=== PATIENT | male | born 1955 | race Caucasian/White ===

== ENCOUNTER → 2021-03-31 | Outpatient (CLI) | payer MEDICARE ==
[~2021-03-31] MED LIST: CLONAZEPAM0.5 MG PO; IOPAMIDOL 370 MG/ML 200 ML INFUS..BTL INJ ONE; LACTULOSE20 GM/30 M PO; NORCO 7.5-3251 EACH PO; SODIUM CHLORIDE 0.9% 100 ML ONE; Z.0.AMBIEN10 MG PO; Z.0.OMEPRAZOLE20 MG PO; Z.0.XANAX0.25 MG PO
== END ==
LOC: CT 09:23
PROVIDERS: ATTEND Internal Medicine Interventional Cardiology
DX: I71.4 Abdominal aortic aneurysm, without rupture (principal)
CPT/HCPCS: 71275; 74174; J7050; Q9967

== ENCOUNTER → 2024-09-11 | Outpatient (REF) | payer MEDICARE ==
[~2024-09-11] MED LIST changes: -IOPAMIDOL 370 MG/ML 200 ML INFUS..BTL INJ ONE; -SODIUM CHLORIDE 0.9% 100 ML ONE
== END ==
LOC: US 10:38
PROVIDERS: ATTEND Internal Medicine Gastroenterology
DX: K74.60 Unspecified cirrhosis of liver (principal)
CPT/HCPCS: 76700

== ENCOUNTER → 2024-10-17 | Outpatient (REF) | payer MEDICARE ==
[2024-10-17 14:33] LABS: BASOPHILS # (AUTO) 0.1 (0.0-0.1); BASOPHILS % 0.7 % (0.0-1.0); EOSINOPHILS # (AUTO) 0.4 (0.0-0.4); EOSINOPHILS % 4.6 % (0.0-6.0); HEMOGLOBIN 15.4 g/dL (14.0-18.0); LYMPHOCYTES # (AUTO) 2.7 (1.0-3.2); MEAN CORPUSCULAR HGB CONC 32.8 g/dL (31-35); MEAN CORPUSCULAR VOLUME 94.8 fL (81-99); MONOCYTES # (AUTO) 0.8 (0.2-0.8); MONOCYTES % 9.5 % (4.4-11.3); NEUTROPHILS % 50.1 % (38.7-80.0); PLATELET COUNT 170 x10e3/uL (140-360); RED BLOOD COUNT 4.96 x10e6/uL (4.3-5.7); RED CELL DISTRIBUTION WIDTH 12.7 % (11.7-14.4); WHITE BLOOD COUNT 8.02 x10e3/uL (4.8-10.8)
[2024-10-17 14:46] LABS: INR 1.04; PROTHROMBIN TIME 14.2 seconds (11.9-14.5)
[2024-10-17 14:53] LABS: ANION GAP 15.2 mmol/L (8-16); BILIRUBIN,DIRECT 0.4 mg/dL (0.0-0.5); BILIRUBIN,TOTAL 1.1 mg/dL (0.2-1.2); CALCIUM 9.5 mg/dL (8.4-10.2); CREATININE, SERUM 0.9 mg/dL (0.72-1.25); POTASSIUM 4.2 mmol/L (3.5-5.1); TOTAL PROTEIN 6.9 g/dL (6.5-8.1)
== END ==
LOC: LAB 14:06
PROVIDERS: ATTEND Internal Medicine Gastroenterology
DX: K74.60 Unspecified cirrhosis of liver (principal)
CPT/HCPCS: 36415; 80048; 80076; 82105; 85025; 85610

== ENCOUNTER → 2025-05-05 | Outpatient (REF) | payer MEDICARE ==
[2025-05-05 10:41] LABS: BASOPHILS % 1.0 % (0.0-1.0); EOSINOPHILS % 3.8 % (0.0-6.0); LYMPHOCYTES % 29.9 % (18.0-39.1); MONOCYTES % 7.6 % (4.4-11.3); NEUTROPHILS % 56.7 % (38.7-80.0); RED CELL DISTRIBUTION WIDTH 12.9 % (11.7-14.4)
[2025-05-05 11:02] LABS: INR 1.04
[2025-05-05 11:16] LABS: EST GLOMERULAR FILTRATION RATE 91.0 ML/MIN (>=60)
== END ==
LOC: US 10:03
PROVIDERS: ATTEND Nurse Practitioner Family
DX: K74.60 Unspecified cirrhosis of liver (principal); Z12.9 Encounter for screening for malignant neoplasm, site unspecified
CPT/HCPCS: 36415; 76700; 80048; 80076; 82105; 85025; 85610

== ENCOUNTER → 2025-05-22 | Outpatient (REF) | payer MEDICARE | LOC: RAD 13:25 | PROVIDERS: ATTEND Internal Medicine | DX: M25.561 Pain in right knee (principal) ==